=== PATIENT | female | born 1965 | race Caucasian/White ===

== ENCOUNTER 2017-02-24 10:26 | Outpatient (CLI) | payer BC ==
--- NOTE | 2017-02-24 12:58 | ULT ---
ABDOMINAL ULTRASOUND: DATE: 02/24/17. PROVIDED CLINICAL HISTORY: Hypertension and chronic kidney disease. FINDINGS: The visualized abdominal aorta, IVC, and pancreas appear normal as visualized. The liver demonstrat es no evidence for mass. There is prominence of the common duct measuring up to 1 cm. There is mar ked distention of the gallbladder by material of increased echogenicity without definite associated shadowing which may reflect a combination of sludge and nonshadowing stones. There is no wall thick ening or pericholecystic fluid apparent. The kidneys demonstrate no hydronephrosis or mass. The sp lilia is not enlarged and demonstrates no focal abnormality. IMPRESSION: 1. Distended common duct. Please correlate with laboratory values to evaluate for the possibility of biliary obstruction. Correlation with MRCP may be useful if clinically indicated. 2. The gallbladder is distended by material of increased echogenicity likely reflecting a combinati on of gallbladder sludge and nonshadowing stones. POS: SOLO
== END 2017-02-24 10:27 | disposition home or self-care (01) ==
LOC: ULT 10:26
PROVIDERS: ATTEND Internal Medicine Nephrology
DX: N17.9 Acute kidney failure, unspecified (principal); I12.9 Hypertensive chronic kidney disease with stage 1 through stage 4 chronic kidney disease, or unspecified chronic kidney disease; E11.22 Type 2 diabetes mellitus with diabetic chronic kidney disease; N18.4 Chronic kidney disease, stage 4 (severe); J45.909 Unspecified asthma, uncomplicated; E87.5 Hyperkalemia; K86.1 Other chronic pancreatitis; K21.9 Gastro-esophageal reflux disease without esophagitis; M19.90 Unspecified osteoarthritis, unspecified site; Q21.1 Atrial septal defect; R17 Unspecified jaundice; E78.5 Hyperlipidemia, unspecified; R94.5 Abnormal results of liver function studies; M10.9 Gout, unspecified
CPT/HCPCS: 76700; 93306

== ENCOUNTER 2017-02-28 16:12 | Inpatient (IN) | payer BC ==
[2017-02-28 16:35] VITALS: BMI 30.4
[2017-02-28] MEDS ORDERED: Acetaminophen 325 MG TAB PO PRN (17:34)
[2017-02-28] MEDS ORDERED: Zolpidem Tartrate 5 MG TAB PO PRN (17:34)
[2017-02-28] MEDS ORDERED: Ondansetron HCl/PF 4 MG/2 ML Vial IVP PRN (17:34)
[2017-02-28] MEDS ORDERED: SALINE EA NARE PRN (17:39)
[2017-02-28] MEDS ORDERED: Sodium Chloride 0.65% Nasal 44 ML BOT EA NARE PRN (17:39)
[2017-02-28] MEDS ORDERED: Gaviscon Tablet PO PRN (17:39)
[2017-02-28] MEDS ORDERED: Dextrose 50% Abboject 50 ML SYRINGE IVP PRN (17:57)
[2017-02-28] MEDS ORDERED: Dextrose 5% in Water 1,000 ML IV PRN (17:57)
[2017-02-28] MEDS ORDERED: HumaLOG 300 UNITS/3 ML VIAL SC PRN (17:57)
[2017-02-28] MEDS: Sodium Chloride 0.9% 1,000 ML IV SCH (18:20)
[2017-02-28] MEDS ORDERED: Estradiol 0.01% Vaginal Cream 42.5 gm Tube VAG SCH (21:00)
[2017-02-28] MEDS ORDERED: Triazolam [Halcion] 0.25 MG PO SCH (21:45)
[2017-02-28] MEDS: Pregabalin 50 MG CAP PO SCH (22:15)
[2017-02-28] MEDS: Calcium Carbonate 600 MG TAB PO SCH (22:17)
[2017-02-28] MEDS: clonazePAM 0.5 MG TAB PO SCH (22:18)
[2017-02-28] MEDS: tiZANidine HCl 4 MG TAB PO SCH (22:18)
[2017-02-28] MEDS: Montelukast Sodium 10 mg Tablet PO SCH (22:18)
--- NOTE | 2017-03-01 00:03 | HP ---
DATE OF ADMISSION: 02/28/2017 ADMITTING PHYSICIAN: To Pierson M.D. PRIMARY CARE PHYSICIAN: Nathalia Frias M.D. CHIEF COMPLAINT: Abdominal pain, nausea, and vomiting. HISTORY OF PRESENT ILLNESS: The patient is a pleasant 52-year-old with history of diabetes. She pr esents as a direct admission from Dr. Harry' office. The patient was noted to have increased creat inine as well as increased bilirubin and alkaline phosphatase on labs. Abdominal ultrasound was per formed which showed gallstones and normal kidneys bilaterally. Dr. Harry wanted the patient admitt ed for proper treatment of the gallstones as well as assessment for acute kidney injury. Upon my in [facility], the patient denies abdominal pain or nausea at this time. No other complaints at this time . REVIEW OF SYSTEMS: The following complete review of systems was negative, unless otherwise mentione d in the HPI or below: Constitutional: Weight loss or gain, sense of well-being, ability to conduct usual activities, exer cise tolerance. Skin/Breast: Rash, itching, changes in hair growth or loss, nail changes, breast lumps, tenderness, swelling, nipple discharge. Eyes: Vision, double vision, tearing, blind spots, pain. ENT/Mouth: Headaches (location, time of onset, duration, precipitating factors), vertigo, lighthead edness, injury. Vision, double vision, tearing, blind spots, pain, nose bleeding, colds, obstructio n, discharge, dental difficulties, gingival bleeding, dentures, neck stiffness, pain, tenderness, ma sses in thyroid or other areas. Cardiovascular: Precordial pain, substernal distress, palpitations, syncope, dyspnea on exertion, o rthopnea, nocturnal paroxysmal dyspnea, edema, cyanosis, hypertension, heart murmurs, varicosities, phlebitis, claudication. Respiratory: Pain, shortness of breath, wheezing, stridor, cough, hemoptysis, fever or night sweats Gastrointestinal: Poor appetite, dysphagia, indigestion, abdominal pain, heartburn, eructation, vincenzo sea, vomiting, hematemesis, jaundice, constipation, or diarrhea, abnormal stools (mago-colored, albert y, bloody, greasy, foul smelling), flatulence, hemorrhoids, recent changes in bowel habits. Genitourinary: Urgency, frequency, dysuria, nocturia, hematuria, polyuria, oliguria, unusual (or ch tacho in) color of urine, stones, hesitancy, change in size of stream, dribbling, acute retention or incontinence, libido, potency. Musculoskeletal: Pain, swelling, redness or heat of muscles or joints, limitation, of motion, muscu lar weakness, atrophy, cramps. Neurologic/Psychiatric: Convulsions, paralyses, tremor, incoordination, parasthesias, difficulties with memory of speech, sensory or motor disturbances, or muscular coordination (ataxia, tremor), emo tional problems, anxiety, depression, previous psychiatric care, unusual perceptions, hallucinations . Allergy/Immunologic: Skin rash, anemia, bleeding tendency, polydipsia, polyuria, intolerance to hea t or cold. PAST MEDICAL HISTORY: Significant for diabetes, pancreatitis, dyslipidemia, neurological disease, g astrointestinal disease, hypertension, obesity, pulmonary disease, COPD, as well as a history of a h emorrhagic CVA. PSYCHIATRIC HISTORY: Positive for anxiety, depression. PAST SURGICAL HISTORY: Positive for hysterectomy and cervical spinal surgery. SOCIAL HISTORY: Denies alcohol or drug use. Former tobacco user. She is currently using E-cigaret mukul at this time. HOME MEDICATIONS: Include 40 mg b.i.d., Lasix 40 mg b.i.d., Halcion 37.5 mg at bedtime, Wellb utrin-XL 150 mg b.i.d., Klonopin 0.5 mg b.i.d., Zofran 4 mg p.o. p.r.n., Lyrica 100 mg q.i.d., tizan idine 8 mg b.i.d., magnesium oxide 20 mEq everyday, SymlinPen 60 mcg with meals, Aldactone 25 mg nela ry day, Benicar 20 mg every day, Crestor 10 mg every day, Singulair 10 mg every day, Uloric 80 mg ev timoteo day, Belbuca 300 mcg b.i.d., Tresiba 100 units per day, Humalog b.i.d., divalproex ER 250 mg at bedtime, and multivitamins. ALLERGIES: Significant for SHELLFISH and SULFONAMIDES. FAMILY HISTORY: Noncontributory to this case. LABORATORY DATA AND IMAGES: Outpatient labs performed on 02/16/2017 showed glucose of 103, BUN 60, creatinine 2.25. Sodium 138, potassium was 8.2, chloride 101, CO2 of 23, alkaline phosphatase 324, AST 81, ALT 158, bilirubin 5.2. CBC on the showed a white blood cell count of 6.4, hemoglobin 12.5, hematocrit 37.2, and platelets 159. Recent blood work on 02/24/2017 shows phosphorus 5.6, alb umin 3.7, creatinine 3.04, sodium 136, potassium 5.5. Uric acid is 3.1, TSH 2.34, lipase 167, adrián ia 98 with a urine protein of 104. Total bilirubin 6.9, direct bilirubin 6.0, alkaline phosphatase 390, AST 96, ALT 134. ASSESSMENT AND PLAN: 1. Cholelithiasis. 2. Acute kidney injury. 3. Diabetes type 2. 4. Hypertension. PLAN: The patient will be admitted to the medical unit. We have put in a consult for Gastroenterol ogy as well as General Surgery and Nephrology Service. The patient will be administered fluid resus citation for the acute renal injury. We will also place her on an insulin sliding scale regimen. S he will be seen and assessed by the appropriate subspecialties and treated accordingly.
[2017-03-01] MEDS ORDERED: hydrALAZINE 25 MG TAB PO SCH (01:00)
[2017-03-01] MEDS ORDERED: hydrALAZINE 25 MG TAB PO PRN (01:07)
[2017-03-01] MEDS ORDERED: hydrOXYzine 25 MG TAB PO SCH (01:30)
[2017-03-01] MEDS ORDERED: hydrOXYzine 25 MG TAB PO PRN (01:34)
[2017-03-01] MEDS: Sodium Chloride 0.9% 1,000 ML IV SCH ×3 (02:09→20:12)
[2017-03-01 05:24] LABS: ALT (SGPT) 133 U/L (8-55); AST (SGOT) 126 U/L (5-34); Alkaline Phosphatase 450 U/L (40-150); Anion Gap 15 mmol/L (10-20); BUN (Urea Nitrogen) 46 mg/dL (9.8-20.1); Bilirubin, Total 7.5 mg/dL (0.2-1.2); Calc. Creatinine Clearance 45 mL/min (70-130); Calcium 9.5 mg/dL (7.8-10.44); Carbon Dioxide 13 mmol/L (22-29); Chloride 110 mmol/L (98-107); Estimated GFR-MDRD 29; Globulin 4.2 g/dL (2.4-3.5); Protein, Total 7.5 g/dL (6.0-8.3)
[2017-03-01 05:47] LABS: Hematocrit 35.8 % (36.0-47.0); Mean Platelet Volume 11.1 fL (7.4-10.4); Neutrophil 58 % (42-75); Polychromasia SLIGHT = 2-3 cells (100X) (0-2/hpf); Red Blood Cell (RBC) Count 3.84 mill/uL (4.20-5.40); White Blood Cell (WBC) Count 4.2 thou/uL (4.8-10.8)
[2017-03-01] MEDS: IRON PO SCH (09:00)
[2017-03-01] MEDS: Multivit, Therapeutic 1 TAB PO SCH (09:00)
[2017-03-01] MEDS: Magnesium Oxide 250 MG TAB PO SCH (09:00)
[2017-03-01] MEDS: Calcium Carbonate 600 MG TAB PO SCH ×2 (09:00→20:12)
[2017-03-01] MEDS: BUPRENORPHINE HCL 300 MCG PO SCH ×2 (09:00→22:06)
[2017-03-01] MEDS: Ascorbic Acid 500 mg Chewable Tablet PO SCH (09:00)
--- NOTE | 2017-03-01 09:57 | PDOC.PN ---
- Subjective Encounter Start Date: 03/01/17 Encounter Start Time: 09:56 - Objective Resuscitation Status: Resuscitation Status FULL:Full Resuscitation MAR Reviewed: Yes Vital Signs & Weight: Vital Signs (12 hours) Temp Pulse Resp BP Pulse Ox 03/01/17 08:50 98.2 F 60 16 03/01/17 08:00 98.4 F 58 L 20 116/63 95 03/01/17 05:00 98.2 F 53 L 16 100/62 98 03/01/17 01:13 60 03/01/17 00:00 98.2 F 60 16 112/53 L 96 Weight Weight 177 lb 2 oz I&O: 02/28/17 03/01/17 03/02/17 06:59 06:59 06:59 Intake Total 240 Balance 240 Result Diagrams: 03/01/17 03:43 03/01/17 12:51 Additional Labs: Accuchecks 03/01/17 03/01/17 06:37 04:12 POC Glucose 81 117 H Laboratory Tests 04/24/16 03/01/17 17:21 03:43 Total Bilirubin 0.3 7.5 H AST 53 H 126 H ALT 113 H 133 H Alkaline Phosphatase 57 450 H Laboratory Tests 03/01/17 03:43 Amylase 79.0 Lipase 51 Phys Exam - Physical Examination Constitutional: NAD jaundiced HEENT: PERRLA, moist MMs, oral pharynx no lesions icterus Neck: no nodes, no JVD, supple, full ROM Respiratory: no wheezing, no rales, no rhonchi, clear to auscultation bilateral Cardiovascular: RRR, no significant murmur Gastrointestinal: soft, non-tender, no distention, positive bowel sounds Musculoskeletal: no edema, pulses present Neurological: non-focal, normal sensation, moves all 4 limbs Psychiatric: normal affect, A&O x 3 Skin: no rash Dx/Plan (1) MATILDE (acute kidney injury) Code(s): N17.9 - ACUTE KIDNEY FAILURE, UNSPECIFIED Status: Acute (2) Transaminitis Code(s): R74.0 - NONSPEC ELEV OF LEVELS OF TRANSAMNS & LACTIC ACID DEHYDRGNSE Status: Acute (3) Cholelithiases Code(s): K80.20 - CALCULUS OF GALLBLADDER W/O CHOLECYSTITIS W/O OBSTRUCTION Status: Acute Qualifiers: Cholelithiasis location: gallbladder Cholecystitis acuity: acute Biliary obstruction: with biliary obstruction (4) Hyperkalemia Code(s): E87.5 - HYPERKALEMIA Status: Acute (5) DM2 (diabetes mellitus, type 2) Status: Chronic Qualifiers: Diabetes mellitus complication status: with hyperglycemia (6) HTN (hypertension) Code(s): I10 - ESSENTIAL (PRIMARY) HYPERTENSION Status: Chronic (7) h/o hemorrhagic cva Status: Chronic (8) COPD (chronic obstructive pulmonary disease) Status: Chronic (9) h/o Pancreatitis Status: Chronic Comment: 2005.Idiopathic (10) Hyponatremia Code(s): E87.1 - HYPO-OSMOLALITY AND HYPONATREMIA Status: Acute - Plan change to NPo status.cont IVF.amylase/lipase WNL. -: Consult GI as well.GS to follow. may need lap marcellus/ERCP -: Nephrology following for MATILDE,hyperkalemia. -: Potassium improved.recheck in am. Cr improving as well. -: home meds as below. * . Review of Systems - Review of Systems Constitutional: Malaise. negative: Fever, Chills, Sweats, Weakness, Other Respiratory: negative: Cough, Dry, Shortness of Breath, Hemoptysis, SOB with Excertion, Pleuritic Pain, Sputum, Wheezing Cardiovascular: negative: Chest Pain, Palpitations, Orthopnea, Paroxysmal Noc. Dyspnea, Edema, Light Headedness, Other Gastrointestinal: negative: Nausea, Vomiting, Abdominal Pain, Diarrhea, Constipation, Melena, Hematochezia, Other Genitourinary: negative: Dysuria, Frequency, Incontinence, Hematuria, Retention , Other Musculoskeletal: negative: Neck Pain, Shoulder Pain, Arm Pain, Back Pain, Hand Pain, Leg Pain, Foot Pain, Other Neurological: negative: Weakness, Numbness, Incoordination, Change in Speech, Confusion, Seizures, Other - Medications/Allergies Allergies/Adverse Reactions: Allergies Allergy/AdvReac Type Severity Reaction Status Date / Time shellfish derived Allergy Severe SEVERE Verified 02/26/16 14:03 VOMITING, SWELLING Sulfa (Sulfonamide Allergy Intermediate NAUSEA/VOMI Verified 02/26/16 14:03 Antibiotics) TING benzoin Allergy Verified 02/26/16 14:03 Medications: Current Medications Acetaminophen (Tylenol) 650 mg PO Q4H PRN PRN Reason: Headache/Fever or Pain Al Hydroxide/Mg Trisilicate (Gaviscon Chew) 2 tab PO PCHS PRN PRN Reason: Gas Pain Ascorbic Acid (Vitamin C) 1,000 mg PO DAILY [facility] Bupropion HCl (Wellbutrin Xl) 300 mg PO QAM [facility] Bupropion HCl (Wellbutrin Xl) 150 mg PO 1200 [facility] Calcium Carbonate (Caltrate) 1,200 mg PO BID [facility] Last Admin: 02/28/17 22:17 Dose: 1,200 mg Cholecalciferol (Vitamin D3) 2,000 units PO BID [facility] Last Admin: 02/28/17 22:17 Dose: 2,000 units Clonazepam (Klonopin) 0.5 mg PO BID [facility] Last Admin: 02/28/17 22:18 Dose: 0.5 mg Cyanocobalamin (Vitamin B-12) 1,000 mcg SC .2X/QMONTH [facility] Dextrose/Water (Dextrose 50%) 25 gm IVP PRN PRN PRN Reason: HYPOGLYCEMIA PROTOCOL Divalproex Sodium (Depakote Er) 500 mg PO HS [facility] Last Admin: 02/28/17 22:14 Dose: 500 mg Estradiol (Estrace 0.01% Vaginal Cream) 1 gm VAG Q7D [facility] Last Admin: 02/28/17 23:30 Dose: Not Given Furosemide (Lasix) 40 mg PO QAM [facility] Glucagon (Glucagon) 1 mg IM PRN PRN PRN Reason: HYPOGLYCEMIA PROTOCOL Hydroxyzine HCl (Atarax) 25 mg PO Q8H PRN PRN Reason: Itching Sodium Chloride (Normal Saline 0.9%) 1,000 mls @ 100 mls/hr IV .Q10H [facility] Last Admin: 03/01/17 02:09 Dose: 1,000 mls Dextrose/Water (D5w) 1,000 mls @ 0 mls/hr IV INF PRN; As Directed PRN Reason: HYPOGLYCEMIA PROTOCOL Insulin Human Lispro (Humalog) 0 units SC .MILD SLIDING SCALE PRN; Protocol PRN Reason: MILD SLIDING SCALE Magnesium Oxide (Magnesium Oxide) 500 mg PO DAILY [facility] Montelukast Sodium (Singulair) 10 mg PO QPM [facility] Last Admin: 02/28/17 22:18 Dose: 10 mg Multivitamins (Theragran) 1 tab PO DAILY [facility] Olmesartan (Benicar) 20 mg PO QAM [facility] Ondansetron HCl (Zofran) 4 mg IVP Q6H PRN PRN Reason: Nausea/Vomiting Pantoprazole Sodium (Protonix) 40 mg PO BID [facility] Last Admin: 02/28/17 22:18 Dose: 40 mg Buprenorphine Hcl [ Belbuca] 300 Mcg Buccal Film 0 each PO Q12HR [facility] Febuxostat [Uloric] (80 Mg) 0 each PO DAILY [facility] Iron (Ferrous Sulfate 325 Mg) Tablet 1 each PO DAILY [facility] Triazolam [Halcion] (0.25 Mg) 0 each PO HS [facility] Pregabalin (Lyrica) 100 mg PO QID [facility] Last Admin: 02/28/17 22:15 Dose: 100 mg Sodium Chloride ([place] Nasal [place] 0.65%) 0 ml EA NARE PRN PRN PRN Reason: Allergies Tizanidine HCl (Zanaflex) 4 mg PO 0800,2100 [facility] Last Admin: 02/28/17 22:18 Dose: 4 mg Tizanidine HCl (Zanaflex) 8 mg PO 1700 [facility] Zolpidem Tartrate (Ambien) 5 mg PO HSPRN PRN PRN Reason: Insomnia
[2017-03-01] MEDS: Pregabalin 50 MG CAP PO SCH ×4 (11:10→20:32)
[2017-03-01] MEDS: clonazePAM 0.5 MG TAB PO SCH ×2 (11:13→20:33)
[2017-03-01] MEDS: tiZANidine HCl 4 MG TAB PO SCH ×3 (11:13→22:08)
[2017-03-01] MEDS: Febuxostat [Uloric] 80 MG PO SCH ×3 (11:13)
[2017-03-01] MEDS: Furosemide 40 MG TAB PO SCH (11:13)
[2017-03-01] MEDS: Bupropion 150 MG XL TAB PO SCH ×2 (11:14→12:00)
[2017-03-01] MEDS ORDERED: Sodium Chloride 0.9% 1,000 ML IV SCH (14:45)
[2017-03-01] MEDS: Dextrose 5 %-0.45 % NaCl 1,000 ML IV SCH ×2 (15:58→20:08)
[2017-03-01] MEDS ORDERED: Iothalamate Meglumine 60% 50 ML VIAL FS ONE (17:59)
[2017-03-01] MEDS ORDERED: Fentanyl 100 MCG/2 ML VIAL ONE (18:04)
[2017-03-01] MEDS ORDERED: Midazolam HCl 2 mg/2 ml Vial ONE (18:04)
--- NOTE | 2017-03-01 18:18 | CON ---
DATE OF CONSULTATION: 03/01/2017 HISTORY OF PRESENT ILLNESS: Patient is a 52-year-old female who presented to the office o n 02/28/2017 with jaundice. She has been seen by Dr. César Tariq for renal insufficiency and was noted during this to have severely abnormal LFTs. She underwent an abdominal ultrasound, which rai wed dilated CBD, a distended gallbladder with sludge and non-shadowing stones. She denies any abdom inal pain, but has had nausea and vomiting over the last couple of weeks. She denies any weight los s, any melena or hematochezia. Dr. Tariq stopped several medications. Ultrasound showed a distend ed common duct of 1 cm. The gallbladder is distended and with material that has increased echogenic ity. Laboratory from 02/24 showed a total bilirubin of 69; direct of 6.0, alkaline phosphatase 390, AST of 96, ALT of 134, platelet count of 110, ammonia of 98 and lipase of 167. PAST MEDICAL HISTORY: Includes severe pancreatitis 15 years ago with a multiorgan failure and prolo nged ICU stay, diabetes mellitus, hyperlipidemia, hypertension, renal insufficiency, chronic lower b ack pain and cerebrovascular accident. PAST SURGICAL HISTORY: Includes carpal tunnel, hemorrhoidectomy, hysterectomy, ovarian cystectomy, spinal fusion and tonsillectomy. ALLERGIES: Include SULFA and SHELLFISH. MEDICATIONS ON ADMISSION: Wellbutrin 150 mg q. day, Crestor 10 mg p.o. q.a.m., Singulair 10 mg p.o. q.p.m., Depakote 500 mg p.o. at bedtime, insulin, Belbuca 300 mcg q.12 hours, Benicar 20 mg p.o. q. a.m., Klonopin 0.5 mg p.o. b.i.d., Lyrica 100 mg p.o. q.i.d., Halcion 37.5 mg p.o. at bedtime, Lasix 40 mg p.o. q.a.m. and omeprazole 40 mg p.o. b.i.d. SOCIAL HISTORY: She does not smoke or drink. FAMILY HISTORY: Significant for pancreatic cancer in the mother. REVIEW OF SYSTEMS: Constitutional: No fever or chills. No weight loss. Eyes: No blurred vision or double vision. ENT: No sore throat or earaches. Cardiovascular: No chest pain or palpitation. Pulmonary: No shortness of breath, cough or wheezing. Gastrointestinal: See above. Genitourina ry: No hematuria or dysuria. Musculoskeletal: No joint pain or muscle aches. Skin: Positive for a jaundiced skin and excoriations on both ankles. Neurologic: No numbness, no seizure activity. PHYSICAL EXAMINATION: VITAL SIGNS: Shows a temperature of 97.7, pulse 55, respiratory rate 18 and blood pressure 175/80. HEENT: Significant for scleral icterus. NECK: Supple. CHEST: Clear. CARDIOVASCULAR: Regular rate and rhythm. ABDOMEN: Soft and nontender, without organomegaly or masses. She has multiple well-healed surgical scars. EXTREMITIES: Normal. NEUROLOGIC: Nonfocal. LABORATORY DATA: Shows a sodium of 133, potassium 5.2 with a repeat of 4.6, chloride 110, CO2 of 13 , BUN 46, creatinine 1.82, glucose 132, total bilirubin 7.5, AST 126, ALT 133, alkaline phosphatase 450, albumin 3.3 and globulin 42. Amylase and lipase are normal. CBC shows a white blood cell cou nt of 42, hemoglobin 11.5, hematocrit 35.8 and platelet count of 60,000. ASSESSMENT: 1. Obstructive jaundice - patient has a dilated biliary tree and echogenic material in her gallblad kylie, making choledocholithiasis the most likely etiology. Other possibilities would be scarring in the pancreas secondary to previous pancreatitis, although this was 15 years ago, making this less li larry. 2. Renal insufficiency. 3. Pancytopenia. 4. Diabetes mellitus. 5. History of pancreatitis. RECOMMENDATIONS: ERCP - the risk and potential complications of the ERCP were discussed with the dee dee joya and family. These include pancreatitis, bleeding and perforation. With the patient's previou s history of pancreatitis, this would make that complication somewhat higher. Patient understands a nd wishes to proceed.
[2017-03-01] MEDS ORDERED: Propofol 200 MG/20 ML VIAL ONE (18:22)
[2017-03-01] MEDS ORDERED: Glycopyrrolate 0.2 MG/ML 5 ML SYRINGE ONE (18:22)
[2017-03-01] MEDS ORDERED: Lidocaine 2% PF 10 ML AMP (For Epidural Use) ONE (18:22)
[2017-03-01] MEDS: Montelukast Sodium 10 mg Tablet PO SCH (20:32)
--- NOTE | 2017-03-01 20:44 | CON ---
DATE OF CONSULTATION: 03/01/2017 CHIEF COMPLAINT: Jaundice. HISTORY: Ms. Lama is a 52-year-old woman, who has a 3-month history of weight loss and a 2-1/2 wee k history of worsening renal function. For the past week and a half, she has been visibly jaundiced , but she has not had any abdominal pain. She does have a lot of nausea, which she states it is bety rly constant and that is why, she is not eating as much. She thinks she is drinking a normal amount , but her state that he thinks she is not drinking as much as usual. She was eventually sen t to Dr. Nile Harry's office and he decided to admit her due to her increased bilirubin and increased creatinine. She did have an ultrasound performed on the , which showed a distended co mmon bile duct. The gallbladder was also distended and there was some sludge in the gallbladder, bu t no definite shadowing and no wall thickening or pericholecystic fluid. I do not have access to mo monroe of her lab work, but according to the chart, her outpatient lab work on the of this month rai wed a creatinine of 2.25 and a bilirubin of 5.2. On the , her creatinine was 3.04 and her bilir ubin was 6.9. She does have a history of severe pancreatitis in the past and she states that she wa s told she had nerve damage to her abdomen due to her pancreatitis. She had a G-tube and J-tube jacinto kayla at the time of her pancreatitis as well as a tracheostomy and an intra-abdominal drain, so it do es sound like it was a very severe episode. At that time, she was also in renal failure and actuall y had to go on dialysis for a while. She has come off dialysis since then and when she saw Dr. Marya haley, he told her that she was likely just very dehydrated, causing her current renal function decline . She does not have any family history of GI malignancy. ALLERGIES: She reports an allergy to SHELLFISH and SULFA. PAST MEDICAL HISTORY: Diabetes. She has continuous blood glucose monitoring since she is by report of fragile diabetic. She also has a history of hypertension, COPD, hemorrhagic, CVA, and neuropath y. SOCIAL HISTORY: She is a former cigarette smoker and uses E-cigarettes now, does not drink or use d rugs, and was not using alcohol at the time of her episode of pancreatitis. Her says they n ever did figure out why she has the pancreatitis. OUTPATIENT MEDICATIONS: Include Lasix, Halcion, Wellbutrin, Klonopin, Zofran, Lyrica, tizanidine, m agnesium oxide, SymlinPen, Aldactone, Benicar, Crestor, Singulair, Uloric, Belbuca, Tresiba, Humalog , divalproex, and multivitamins. LABS AND IMAGING: As per HPI. PHYSICAL EXAMINATION: VITAL SIGNS: The patient is visibly jaundiced and icteric. HEENT: Unremarkable. NECK: Supple, without lymphadenopathy or thyroid nodules. HEART: Regular in its rate and rhythm, and without murmurs, rubs, or gallops. LUNGS: Clear to auscultation. ABDOMEN: Soft and nondistended. She is nontender to palpation. She has healed surgical incisions. EXTREMITIES: Warm and well perfused without edema. NEUROLOGIC: No focal deficits. PSYCHIATRIC: Alert, oriented, and appropriate, although her answers most questions. ASSESSMENT: Painless jaundice and this is worrisome for a bile duct obstruction and somewhat atypic al for stone disease. She has sludge in possible small non-shadowing stones in her gallbladder on u ltrasound and does have a past history of pancreatitis, so she may have gallstone disease. However, I am hesitant to attribute her symptoms to this. She has had a 30 pound weight loss in the past 3 months and all of this is concerning for occult malignancy. I have spoken with Radiology and they r ecommended against MRCP or CT in the setting of her acute renal failure even though it appears to be improving somewhat with hydration, and it is stated that when her renal function is back to normal in about a week. We could consider MRCP or CT pancreatic protocol. Gastroenterology has seen her a nd is planning to do an ERCP, if there is no evidence of malignancy by ERCP and if the patient's jonathan al failure does not resolve, then endoscopic ultrasound might be the best diagnostic option until th e cause of her jaundice becomes clear. I am hesitant to recommend laparoscopic cholecystectomy, but I will follow along with GI on this case.
[2017-03-01] MEDS ORDERED: Triazolam [Halcion] 0.25 MG PO SCH (21:00)
--- NOTE | 2017-03-02 01:19 | OP ---
PREOPERATIVE DIAGNOSIS: Obstructive jaundice. PROCEDURE: After informed consent was obtained, the patient was placed in the left lateral decubitu s position. Anesthesia was administered per the Anesthesia Department. Side-viewing endoscope was inserted into the esophagus under direct visualization with ease and passed to the second portion of the duodenum with ease. Second portion of the duodenum and duodenal bulb were normal. No mucosal abnormalities were noted. A tapered-tip papillotome was inserted into the ampulla, and the wire was attempted to pass the common bile duct. No cannulation of the common bile duct was achieved. No c ontrast was injected during this ERCP. ASSESSMENT: Unsuccessful endoscopic retrograde cholangiopancreatography. RECOMMENDATIONS: Consider referral to Dr. Perez.
[2017-03-02 05:27] LABS: ALT (SGPT) 146 U/L (8-55); AST (SGOT) 130 U/L (5-34); Alkaline Phosphatase 467 U/L (40-150); Anion Gap 15 mmol/L (10-20); BUN (Urea Nitrogen) 37 mg/dL (9.8-20.1); Bilirubin, Total 8.1 mg/dL (0.2-1.2); Calc. Creatinine Clearance 47 mL/min (70-130); Calcium 9.8 mg/dL (7.8-10.44); Carbon Dioxide 20 mmol/L (22-29); Chloride 106 mmol/L (98-107); Estimated GFR-MDRD 31; Globulin 4.1 g/dL (2.4-3.5); Protein, Total 7.5 g/dL (6.0-8.3)
[2017-03-02 05:45] LABS: Hematocrit 36.5 % (36.0-47.0); Hypochromia SLIGHT = 6-15 cells (100X) (0-5/hpf); Mean Platelet Volume 13.3 fL (7.4-10.4); Neutrophil 56 % (42-75); Red Blood Cell (RBC) Count 4.01 mill/uL (4.20-5.40); Target Cells SLIGHT = 2-5 cells (100X) (0-1/hpf)
[2017-03-02] MEDS: Dextrose 5 %-0.45 % NaCl 1,000 ML IV SCH (08:45)
[2017-03-02] MEDS: Pregabalin 50 MG CAP PO SCH ×3 (08:46→18:57)
[2017-03-02] MEDS: Calcium Carbonate 600 MG TAB PO SCH (08:46)
[2017-03-02] MEDS: clonazePAM 0.5 MG TAB PO SCH (08:46)
[2017-03-02] MEDS: Bupropion 150 MG XL TAB PO SCH ×2 (08:47→12:24)
[2017-03-02] MEDS: tiZANidine HCl 4 MG TAB PO SCH ×2 (08:47→18:57)
[2017-03-02] MEDS: Furosemide 40 MG TAB PO SCH (08:47)
[2017-03-02] MEDS: Febuxostat [Uloric] 80 MG PO SCH ×3 (08:47)
[2017-03-02] MEDS: IRON PO SCH ×2 (08:47→12:25)
[2017-03-02] MEDS: Ascorbic Acid 500 mg Chewable Tablet PO SCH (08:47)
[2017-03-02] MEDS: Multivit, Therapeutic 1 TAB PO SCH (08:48)
[2017-03-02] MEDS: Magnesium Oxide 250 MG TAB PO SCH (08:53)
--- NOTE | 2017-03-02 08:58 | PRG ---
DATE OF SERVICE: 03/02/2017 SUBJECTIVE: Ms. Lama is feeling okay today. She denies any nausea or severe abdominal pain. She states she feels a little sore from her procedure yesterday. Vital signs have been good. LFTs have slightly increased. BUN and creatinine are about the same to slightly better. Urine output is goo d. She is still jaundiced. Her abdomen is benign. ASSESSMENT AND PLAN: Obstructive jaundice which is painless. This is very concerning for a slow gr owing malignancy or other process. Endoscopic retrograde cholangiopancreatography yesterday was uns uccessful at cannulating the duct, although the papilla was easily seen. Again this is very concern ing for obstructive and possibly malignant process. Dr. Hankins has recommended referral to a tertiary care center for another attempted endoscopic retrograde cholangiopancreatography. I would also sug gest that endoscopic ultrasound be considered. Noncontrast imaging of the abdomen could be performe d, although this would be difficult to interpret although she had an obvious calcified stone in the bile duct. However, this is unlikely. I agree with transfer to a higher level of care. There is n o indication for cholecystectomy at this time.
[2017-03-02] MEDS: BUPRENORPHINE HCL 300 MCG PO SCH (09:50)
--- NOTE | 2017-03-02 13:25 | PRG ---
DATE OF SERVICE: 03/02/2017 SUBJECTIVE: The patient is actually feeling better today. She is having no abdominal pain, no naus ea or vomiting. She is hungry. OBJECTIVE: VITAL SIGNS: Temperature 98.3, pulse 53, respiratory rate 20, blood pressure 117/60. CHEST: Clear. CARDIOVASCULAR: Regular rate and rhythm. ABDOMEN: Soft, nontender, without organomegaly or masses. LABORATORY DATA: Shows a CO2 of 20, BUN 37, creatinine 1.73, total bilirubin 81, AST 130, ALT 146, alkaline phosphatase 1467. CBC shows platelets increasing to 117. ASSESSMENT: 1. Obstructive jaundice -- endoscopic retrograde cholangiopancreatography unsuccessful. 2. Diabetes mellitus. 3. Renal insufficiency. 4. History of pancreatitis. RECOMMENDATIONS: Transfer to center of high level of care for repeat ERCP and/or possibly endoscopi c ultrasound.
--- NOTE | 2017-03-02 14:00 | DIS ---
DATE OF ADMISSION: 02/28/2017 DATE OF DISCHARGE: 03/02/2017 PRIMARY CARE PHYSICIAN: Yung Frias M.D. DISCHARGE DISPOSITION: Hospital to hospital transfer for higher level of care. PRIMARY DISCHARGE DIAGNOSES: Obstructive jaundice and acute kidney failure. SECONDARY DISCHARGE DIAGNOSES: Diabetes type 2, hypertension, and chronic obstructive pulmonary dis ease. PRIMARY PROCEDURE/OPERATION: ERCP was started by Dr. Hankins, but it was unsuccessful. RADIOLOGICAL INVESTIGATION: Echocardiography was done on 02/25/2017, which showed normal LV functio n. Abdominal ultrasound was done which showed distended common duct, gallbladder sludge. SIGNIFICANT LABORATORY DATA: WBC 5.0, hemoglobin 12.1, platelet 117. Sodium 136, potassium 4.8, BU N 37, creatinine 1.73, calcium 9.8, and bilirubin 8.1, AST 130, ALT 146, alkaline phosphatase 467, a lbumin 3.4, lipase 51. DISCHARGE MEDICATIONS: Patient is on following medications at home, vitamin C 1000 mg p.o. daily, b uprenorphine 300 mcg p.o. q.12 hourly, calcium carbonate 1200 mg p.o. b.i.d., vitamin D3 2000 units p.o. b.i.d., vitamin B12 1000 mcg p.o. daily, Depakote ER 500 mg p.o. at bedtime, Estrace vaginal cr eam every 7 days, estradiol patch as directed, Uloric 80 mg p.o. daily, Britta-D tablet daily, Lasi x 40 mg p.o. daily, Humalog insulin as per sliding scale, Tresiba 100 units subcutaneous at bedtime, iron 1 tablet p.o. daily, magnesium carbonate one tablet p.o. p.r.n., magnesium oxide 500 mg p.o. d aily, Singulair 10 mg p.o. daily, multivitamin 1 tablet p.o. daily, Benicar 20 mg p.o. daily, Zofra n p.r.n., Lyrica 100 mg q.i.d., triazolam 37.5 mg p.o. at bedtime, Wellbutrin-XL 150 mg p.o. as dire cted, Klonopin 0.5 mg p.o. b.i.d., Zanaflex 4 mg p.o. as directed. CONTRAINDICATIONS: None. CODE STATUS: FULL CODE. INPATIENT CONSULTANTS: Dr. Leyva was consulted while in hospital. Dr. Hankins was consulted while i n hospital. ALLERGIES: SHELLFISH, SULFA DRUGS, and BENZOIN. DISCHARGE PLAN: Post hospital, the patient is discharged to another hospital for higher level of ca re. HOSPITAL COURSE: A 52-year-old female who was admitted by Dr. To Pierson. Please see his H\T\P f or further details. The patient was presented to the emergency room with nausea, vomiting, and abdo shahzad discomfort. She had weight loss. This patient is directly admitted from Dr. Harry' office. This patient had abdominal ultrasound on an outpatient basis which showed biliary dilatation. Dr. Hankins was metal bonding assembler and he was consulted. Dr. Leyva was metal bonding assembler and she was consulted. Dr. Leyva was not thinking that this patient has any gallbladder related symptoms, but she was worried about m ore cholangiocarcinoma. Dr. Hankins tried to do ERCP, but he was not able to finish procedure because he was not able to cannulate and that is why he recommended to transfer her to another hospital. I spoke with the safety equipment tester in another hospital as well as a hospitalist at [facility] and updated about the patient plan and hospital course and they accepted this patient for further care. The patient is seen and examined at bedside today. All review of systems reviewed with her negative. PHYSICAL EXAMINATION: VITAL SIGNS: Currently, temperature 98.3, pulse 50, respiratory rate 20, saturation 97%, and blood pressure 117/60. Weight 177 pounds. GENERAL: The patient is currently alert, awake, no acute distress. HEAD: Normocephalic, atraumatic. EYES: Pupils round, reactive to light. Extraocular muscles intact. ENT: Oropharynx within normal limits. Icterus present. NECK: Supple. LUNGS: Clear. CARDIAC: S1 and S2 regular without any murmur. ABDOMEN: Soft and benign. EXTREMITIES: No edema. NEUROLOGIC: Nonfocal examination. Total time spent on discharge day more than 30 minutes.
[2017-03-02 19:50] VITALS: BP 103/65; TEMP 97.6
[2017-03-09] MEDS ORDERED: Cyanocobalamin 1000 MCG/ML VIAL SC SCH (09:00)
== END 2017-03-02 19:45 | disposition short-term general hospital (02) | DRG 445 ==
LOC: T4-A 16:12
PROVIDERS: ADMIT Internal Medicine Addiction Medicine; ATTEND Internal Medicine Addiction Medicine
PROC: 0FJB8ZZ Inspection of Hepatobiliary Duct, Via Natural or Artificial Opening Endoscopic (ICD-10-PCS; principal; 2017-03-01)
DX: K83.1 Obstruction of bile duct (principal); N17.9 Acute kidney failure, unspecified; D61.818 Other pancytopenia; E87.1 Hypo-osmolality and hyponatremia; I10 Essential (primary) hypertension; Z79.4 Long term (current) use of insulin; J44.9 Chronic obstructive pulmonary disease, unspecified; Z87.19 Personal history of other diseases of the digestive system; F17.290 Nicotine dependence, other tobacco product, uncomplicated; Z86.73 Personal history of transient ischemic attack (TIA), and cerebral infarction without residual deficits; M19.90 Unspecified osteoarthritis, unspecified site; K21.9 Gastro-esophageal reflux disease without esophagitis; Z91.013 Allergy to seafood; E87.5 Hyperkalemia; E11.65 Type 2 diabetes mellitus with hyperglycemia
CPT/HCPCS: 36415; 36416; 74330; 76001; 80053; 82150; 83690; 85025; J1610; J2001; J2250; J2704; J3010; Q9961

== ENCOUNTER 2017-04-19 01:55 | Emergency (ER) | payer MEDICARE, BC ==
[2017-04-19] MEDS ORDERED: Ampicillin 250 MG VIAL ONE (03:07)
[2017-04-19] MEDS ORDERED: metroNIDAZOLE 500 MG/100 ML BAG ONE (03:07)
[2017-04-19] MEDS ORDERED: Dextrose 50% Abboject 50 ML SYRINGE ONE ×2 (03:10→05:06)
[2017-04-19 03:23] LABS: Bilirubin Negative (Negative); Blood, Urine Negative (Negative); Glucose, Urine (Dipstick) Negative (Negative); Ketone, Urine Negative (Negative); Nitrite Negative (Negative); Protein, Urine (Dipstick) Negative (Neg-Trace); Urobilinogen 0.2 mg/dL (0.2-1.0)
[2017-04-19 03:25] LABS: Bacteria/HPF None Seen HPF (None Seen); Squamous Epithelial 21-50 HPF (0-3)
[2017-04-19] MEDS ORDERED: Ampicillin 1 GM, Syringe 2.6 ML in Sterile Water 7.4 ML SLOW IVP SCH (03:30)
[2017-04-19 03:32] LABS: Lactic Acid - Sepsis 1.2 mmol/L (0.5-2.2)
[2017-04-19 03:36] LABS: #Eosinphils 0.4 thou/uL (0.0-0.7); #Lymphocytes 2.2 thou/uL (1.20-3.40); #Monocytes 0.9 thou/uL (0.11-0.59); %Basophils 0.4 % (0.0-1.0); %Eosinophils 4.2 % (0.0-10.0); %Lymphocytes 23.1 % (21.0-51.0); %Monocytes 9.7 % (0.0-10.0); Mean Platelet Volume 10.3 fL (7.4-10.4); Red Blood Cell (RBC) Count 2.84 mill/uL (4.20-5.40); White Blood Cell (WBC) Count 9.6 thou/uL (4.8-10.8)
[2017-04-19] MEDS ORDERED: Fentanyl 100 MCG/2 ML VIAL ONE (03:41)
[2017-04-19 03:46] LABS: Renal Epithelial None Seen HPF (0-3); Transitional Epithelial NONE SEEN HPF (0-3)
[2017-04-19 03:47] LABS: Hyaline Casts/LPF NONE SEEN LPF (0-3 Hyaline)
[2017-04-19 03:50] LABS: ALT (SGPT) 28 U/L (8-55); AST (SGOT) 24 U/L (5-34); Alkaline Phosphatase 119 U/L (40-150); Anion Gap 12 mmol/L (10-20); BUN (Urea Nitrogen) 16 mg/dL (9.8-20.1); Bilirubin, Total 0.4 mg/dL (0.2-1.2); Calc. Creatinine Clearance 0 mL/min (70-130); Calcium 8.9 mg/dL (7.8-10.44); Carbon Dioxide 27 mmol/L (22-29); Chloride 106 mmol/L (98-107); Estimated GFR-MDRD 82; Globulin 2.7 g/dL (2.4-3.5); Protein, Total 5.6 g/dL (6.0-8.3)
[2017-04-19] MEDS ORDERED: Ketorolac Tromethamine 30 MG/ML VIAL ONE (06:03)
--- NOTE | 2017-04-19 07:53 | RAD ---
CHEST ONE VIEW: History: Pain. Comparison: None. FINDINGS: Enlarged cardiac silhouette. The pulmonary vessels and hilum are normal. No mass. No consolidation. N o pneumothorax or osseous abnormality. IMPRESSION: Cardiomegaly. No acute process. POS: [facility]
--- NOTE | 2017-04-19 08:33 | RAD ---
TWO VIEWS FROM A KUB: INDICATION: Abdominal pain. COMPARISON: None. FINDINGS: There is a mild amount of food distending the stomach bubble. There is postsurgical change of a rafy reena bypass and cholecystectomy suspected. The bowel gas pattern is unobstructed. There are small va scular calcifications seen within the lower aspect of the pelvis. No acute osseous abnormality is ev ident. IMPRESSION: 1. Moderate gaseous and debris distention of the suspected gastric pouch. The patient has the appea jordan of a prior gastric bypass. Findings may be related to gastroparesis or possibly gastric outlet obstruction from inflammation or possibly mass. Further evaluation with a CT of the abdomen and pel vis may be helpful. 2. Small bowel gas pattern appears unobstructed. POS: [facility]
== END 2017-04-19 06:15 | disposition home or self-care (01) ==
LOC: ERS 01:55
DX: E86.0 Dehydration (principal); F11.23 Opioid dependence with withdrawal; R11.0 Nausea; R63.0 Anorexia; E11.9 Type 2 diabetes mellitus without complications; E66.9 Obesity, unspecified; F32.9 Major depressive disorder, single episode, unspecified; F41.9 Anxiety disorder, unspecified; F17.210 Nicotine dependence, cigarettes, uncomplicated; I10 Essential (primary) hypertension; J44.9 Chronic obstructive pulmonary disease, unspecified; K21.9 Gastro-esophageal reflux disease without esophagitis; Z86.73 Personal history of transient ischemic attack (TIA), and cerebral infarction without residual deficits
CPT/HCPCS: 36416; 51701; 71010; 74000; 80053; 81003; 81015; 83605; 85025; 87040; 87086; 93005; 96361; 96365; 96367; 96375; 96376; A4216; A4353; J0290; J1885; J1956; J3010

== ENCOUNTER 2017-05-24 00:03 | Inpatient (IN) | payer OTHER, MEDICARE ==
[~2017-05-24 00:03] MED LIST: ISOVUE-370 76%-LOCM 1 ML ONE; Iopamidol 370 76% 50 ML VIAL FS ONE
[2017-05-24 01:07] LABS: #Eosinphils 0.2 thou/uL (0.0-0.7); #Lymphocytes 2.9 thou/uL (1.20-3.40); #Monocytes 0.6 thou/uL (0.11-0.59); #Neutrophils 4.2 thou/uL (1.40-6.50); %Basophils 0.6 % (0.0-1.0); %Eosinophils 2.2 % (0.0-10.0); %Lymphocytes 36.8 % (21.0-51.0); %Monocytes 7.5 % (0.0-10.0); %Neutrophils 52.9 % (42.0-75.0); Hemoglobin 12.8 g/dL (12.0-16.0); Mean Corpuscular HGB CONC 33.1 g/dL (32.0-36.0); Mean Corpuscular Hemoglobin 29.4 pg (27.0-31.0); Mean Corpuscular Volume 88.8 fl (81.0-99.0); Mean Platelet Volume 11.6 fL (7.4-10.4); Platelet Count 222 thou/uL (130-400); RBC Distribution Width 14.3 % (11.5-14.5); Red Blood Cell (RBC) Count 4.35 mill/uL (4.20-5.40); White Blood Cell (WBC) Count 7.9 thou/uL (4.8-10.8)
[2017-05-24 01:35] LABS: ALT (SGPT) 128 U/L (8-55); AST (SGOT) 70 U/L (5-34); Albumin 3.9 g/dL (3.5-5.0); Alkaline Phosphatase 155 U/L (40-150); Anion Gap 17 mmol/L (10-20); BUN (Urea Nitrogen) 26 mg/dL (9.8-20.1); Bilirubin, Total 0.3 mg/dL (0.2-1.2); Calc. Creatinine Clearance 0 mL/min (70-130); Calcium 10.1 mg/dL (7.8-10.44); Carbon Dioxide 22 mmol/L (22-29); Chloride 102 mmol/L (98-107); Estimated GFR-MDRD 47; Globulin 3.7 g/dL (2.4-3.5); Glucose 329 mg/dL (70-105); Potassium 3.9 mmol/L (3.5-5.1); Protein, Total 7.6 g/dL (6.0-8.3); Sodium 137 mmol/L (136-145)
[2017-05-24 02:54] LABS: BHCG - Serum Negative (NEGATIVE); Pregs Control Background? CLEAR/WHITE (CLR/WHITE); Pregs Control Bar Appear? YES (CONTROL BAR)
[2017-05-24 03:02] LABS: Magnesium 1.9 mg/dL (1.6-2.6)
[2017-05-24 03:12] LABS: INR-International Normal Ratio 1.1; PTT 35.1 SEC (22.9-36.1); Prothrombin Time 14.6 SEC (12.0-14.7)
[2017-05-24] MEDS ORDERED: Ondansetron HCl/PF 4 MG/2 ML Vial ONE (05:12)
[2017-05-24] MEDS ORDERED: Morphine 4 MG/ML Carpuject ONE (05:12)
[2017-05-24 05:48] LABS: Bilirubin Small (Negative); Blood, Urine Negative (Negative); Clarity CLOUDY (Clear); Glucose, Urine (Dipstick) Negative (Negative); Leukocyte Negative (Negative); Nitrite Negative (Negative); Protein, Urine (Dipstick) 100 mg/dL (Neg-Trace); Urobilinogen 0.2 mg/dL (0.2-1.0); pH, Urine 5.5 (5.0-9.0)
[2017-05-24 05:51] LABS: Bacteria/HPF None Seen HPF (None Seen); Pathc Cast-AUWi Flag 5.42 (0-2.49); Specific Gravity, Urine 1.046 (1.002-1.036)
[2017-05-24 06:00] LABS: Crystals/HPF 2+ CA OXALATE HPF (Negative); RBC/HPF 0-3 HPF (0-3); Renal Epithelial None Seen HPF (0-3); Transitional Epithelial NONE SEEN HPF (0-3); Trichomonas/HPF None Seen HPF (None Seen)
[2017-05-24] MEDS ORDERED: Loperamide HCl 2 MG CAP PO PRN (06:56)
[2017-05-24] MEDS ORDERED: Sodium Chloride 0.65% Nasal 44 ML BOT EA NARE PRN (06:56)
[2017-05-24] MEDS ORDERED: Dextrose 5% in Water 1,000 ML IV PRN (06:56)
[2017-05-24] MEDS ORDERED: Acetaminophen 325 MG TAB PO PRN (06:56)
[2017-05-24] MEDS ORDERED: Ondansetron ODT 4 MG TAB PO PRN (06:56)
[2017-05-24] MEDS ORDERED: HumaLOG 300 UNITS/3 ML VIAL SC PRN ×2 (06:56)
[2017-05-24] MEDS ORDERED: Mag-Al 1200 mg/1200 mg/30 ML UDCUP PO PRN (06:56)
[2017-05-24] MEDS ORDERED: Senokot 8.6 MG TAB PO PRN (06:56)
[2017-05-24] MEDS ORDERED: Labetalol HCl 100 MG/20 ML VIAL SLOW IVP PRN (06:56)
[2017-05-24] MEDS ORDERED: Loratadine 10 MG TAB PO PRN (06:56)
[2017-05-24] MEDS ORDERED: Eucerin (Mineral Oil/Petrolatum,White) 30 gm Jar TOP PRN (06:56)
[2017-05-24] MEDS ORDERED: Milk Of Magnesia 30 ML UDCUP PO PRN (06:56)
[2017-05-24] MEDS ORDERED: Dextrose 50% Abboject 50 ML SYRINGE SLOW IVP PRN (06:56)
[2017-05-24] MEDS ORDERED: hydrALAZINE 20 MG/ML VIAL SLOW IVP PRN (06:56)
[2017-05-24] MEDS ORDERED: Ondansetron HCl/PF 4 MG/2 ML Vial IVP PRN (06:56)
[2017-05-24] MEDS ORDERED: Artificial Tears 18 DROP/0.9 ML EA EYE PRN (06:56)
[2017-05-24] MEDS ORDERED: Chloraseptic Spray 180 ml Bottle PO PRN (06:56)
[2017-05-24] MEDS ORDERED: Diabetic Tussin 200 MG/10 ML UDCUP PO PRN (06:56)
--- NOTE | 2017-05-24 08:35 | RAD ---
FRONTAL VIEW CHEST: COMPARISON: 04/19/17. CLINICAL HISTORY: Epigastric pain. FINDINGS: No free air beneath the hemidiaphragms. Cardiac silhouette is normal in size. No consolidation or e ffusion. A mild chronic-appearing osseous deformity of the posterolateral mid to lower left ribs not ed. IMPRESSION: No acute process. POS: [facility]
--- NOTE | 2017-05-24 08:47 | CON ---
DATE OF CONSULTATION: 05/24/2017 ATTENDING PHYSICIAN: Dr. Ed Godoy. HISTORY OF PRESENT ILLNESS: The patient is a 52-year-old female with a past medical history of recent pancreatic cancer diagnosis, status post Whipple procedure on 04/12/2017 at [facility] in [place], hypertension, hyperlipidemia, diabetes, CVA in 2005, COPD, who presented to the emergency department last night complaining of abdominal pain and altered mental status. Patient was evaluated with a CT of the abdomen and pelvis as well as CT head. CT head was notable for new left frontal lesion with surrounding vasogenic edema. Therefore, the Neurosurgery Service was consulted. There is no midline shift. I am seeing the patient at the bedside. She is alert and oriented to person, place, and time. She is unable to tell me her birthday. Pupils are equal and reactive. She has good strength to bilateral upper and lower extremities. No focal weakness is appreciated. Family reports that they have recently seen an oncologist at [facility] in [place] and had plans for port placement in the near future and chemotherapy. We discussed the options of transfer closer to her physicians; however, they feel more comfortable staying in the [facility] at this time. PAST MEDICAL HISTORY: Diabetes, hypertension, hyperlipidemia, CVA, COPD, pancreatic cancer. PAST SURGICAL HISTORY: Appendectomy, cholecystectomy, Whipple procedure, hysterectomy, cervical spinal surgery. ALLERGIES: The patient is allergic to PENICILLIN, REGLAN, SHELLFISH, AND SULFA. FAMILY HISTORY: Noncontributory. SOCIAL HISTORY: The patient lives at home. She does not smoke, drink, or use any drugs. REVIEW OF SYSTEMS: Per HPI. PHYSICAL EXAMINATION: VITAL SIGNS: Blood pressure is 146/59, pulse is 61, respiratory rate is 16, temperature is 99.0. Patient is 99% on room air. CONSTITUTIONAL: She is sitting comfortably in the bed, in no acute distress. She is alert. She is oriented to person, place, and time. HEAD: Normocephalic, atraumatic. EYES: PERRLA. Extraocular movements are intact. Sclerae white. ENT: Oral mucosa is pink and intact, moist. Voice is normal. NECK: Supple, nontender to palpation. Free active range of motion, no meningismus or nuchal rigidity. RESPIRATORY: The patient is breathing comfortably. She has symmetric chest expansion. No evidence dyspnea. CARDIOVASCULAR: She has regular rate and rhythm. ABDOMEN: The patient has a large midline incision, which appears to be intact and healing well. She is mildly tender in the epigastric region and right upper quadrant. MUSCULOSKELETAL: She has free active range of motion of all extremities. Peripheral pulses are intact. NEUROLOGIC: She is alert and oriented x4. She has a normal cranial nerve exam. She is unable to tell me her own birthday. No focal motor weakness is appreciated and she has normal [id number]. ASSESSMENT: New left frontal mass with surrounding vasogenic edema in the setting of known pancreatic cancer, which likely indicates metastases. PLAN: This patient will be admitted to the medical service and Oncology will also be involved in the patient's care. We will recommend further evaluation of the patient's new left frontal mass with MRI of the brain with and without contrast. The patient will be monitored closely with frequent neuro checks. I have discussed this plan with Dr. Godoy, who is also in agreement. Please reach out to Neurosurgery Service for additional questions or concerns. ONIEL
[2017-05-24 09:00] VITALS: BMI 27.6
[2017-05-24] MEDS ORDERED: clonazePAM 0.5 MG TAB PO SCH ×2 (09:00→23:45)
[2017-05-24] MEDS ORDERED: Multivit, Therapeutic 1 TAB PO SCH (09:00)
[2017-05-24] MEDS ORDERED: Pantoprazole 40 MG VIAL IVP SCH (09:00)
[2017-05-24] MEDS ORDERED: Ascorbic Acid 500 mg Chewable Tablet PO SCH (09:00)
[2017-05-24] MEDS: Sodium Chloride 0.9% 1,000 ML IV SCH ×2 (09:31→20:33)
--- NOTE | 2017-05-24 09:36 | CT ---
PRELIMINARY REPORT/[facility]/EMERGENCY AFTER HOURS PROCEDURE: Addendum created by Bhargav Gutierres MD on 05/24/2017 5:54 AM Central Time ([place] & [place]) THIS REPORT CONTAINS FINDINGS THAT MAY BE CRITICAL TO PATIENT CARE. The findings were verbally commun icated via telephone conference with Justino Grimm at 5:53 AM HYDRAULIC ASSEMBLER on 05/24/2017. The findings were acknowledged and understood. Initial Report created on 05/24/2017 5:50 AM Central Time ([place] & [place]) EXAM: CT Head Without Intravenous Contrast EXAM DATE/TIME: Exam ordered 05/24/2017 5:35 AM CLINICAL HISTORY: 52 years old, female; Signs and symptoms; Altered mental status/memory loss; Confusion or disorientat ion; Patient HX: Ams/confusion; &o x1. Pt cannot get her own birthday, her 's birthday, or day of week correct. Pt confused and laughing. TECHNIQUE: Axial computed tomography images of the head/brain without intravenous contrast. COMPARISON: No relevant prior studies available. FINDINGS: Brain: There are large area of hypoattenuation involving the LEFT frontal lobe suspicious for underly ing mass lesion. No hemorrhage. No significant white matter disease. Ventricles: Normal. No ventriculomegaly. Bones/joints: Normal. No acute fracture. Soft tissues: Normal. Sinuses: Unremarkable as visualized. No acute sinusitis. Mastoid air cells: Unremarkable as visualized. No mastoid effusion. IMPRESSION: There are large area of hypoattenuation involving the LEFT frontal lobe suspicious for edema from underlying mass lesion. Further evaluation with brain MRI without and with contrast is advised. Thank you for allowing us to participate in the care of your patient. Dictated and Authenticated by: Bhargav Gutierres MD 05/24/2017 5:50 AM Central Time ([place] & [place]) FINAL REPORT CT BRAIN WITHOUT CONTRAST: HISTORY: Altered mental status. FINDINGS/IMPRESSION: The findings of the left frontal lobe are likely sequelae of encephalomalacia with expected location of the frontal horn and the left lateral ventricle. Intraaxial masses are less likely. No hemorrhag e. The findings are unchanged from the 04/24/16 exam. CODE: QA POS: [facility]
--- NOTE | 2017-05-24 09:38 | CT ---
PRELIMINARY REPORT/[facility]/EMERGENCY AFTER HOURS PROCEDURE: EXAM: CT Abdomen and Pelvis With Intravenous Contrast EXAM DATE/TIME: Exam ordered 05/24/2017 5:37 AM CLINICAL HISTORY: 52 years old, female; Pain; Abdominal pain; Localized; Right upper quadrant (ruq); Prior surgery; Pat ient HX: 52 yo f presents to ed C/O post op complication. Pt has h/o pancreatic cancer and had whippl e procedure on 04/12/17. Pt woke up this morning with abdominal pain. also reports chills and decreased appetite. Pt tolerating po. Pt has been slowly relearning how to eat since surgery. ; Addit ional info: *limited oral contrast TECHNIQUE: Axial computed tomography images of the abdomen and pelvis with intravenous contrast. Coronal reformatted images were created and reviewed. COMPARISON: No relevant prior studies available. FINDINGS: Lower thorax: No acute findings. ABDOMEN: Liver: There are no focal liver lesions present. Gallbladder and bile ducts: Patient is post Whipple surgery with pancreatic head resection, gastrojej unostomy and cholecystectomy. Mild stranding in the surgical bed compatible with typical postoperativ e change. No intrahepatic ductal dilation. Pancreas: Linear hyperdensity is noted in the pancreas possibly representing a stent. Spleen: The spleen demonstrates punctate calcifications, consistent with remote granulomatous organis m exposure. Adrenals: The adrenal glands are normal. The adrenal glands are normal. Kidneys and ureters: The kidneys are normal. The kidneys are normal. No hydronephrosis. Stomach and bowel: The colon is normal. Appendix: No findings to suggest acute appendicitis. PELVIS: Bladder: The bladder is decompressed but otherwise normal. Reproductive: Unremarkable as visualized. ABDOMEN and PELVIS: Intraperitoneal space: Normal. No free air. No significant fluid collection. Bones/joints: No acute fracture. No dislocation. Soft tissues: Normal. Vasculature: The vasculature demonstrates diffuse moderate atherosclerotic calcification. No abdomina l aortic aneurysm. Lymph nodes: Normal. No enlarged lymph nodes. IMPRESSION: No acute abdominal pelvic pathology. Post Whipple surgery one month ago. Thank you for allowing us to participate in the care of your patient. Dictated and Authenticated by: Bhargav Gutierres MD 05/24/2017 5:56 AM Central Time ([place] & [place]) FINAL REPORT CT ABDOMEN AND PELVIS: HISTORY: Abdominal pain. Right upper quadrant pain. Recent Whipple procedure. COMPARISON: None. FINDINGS: Mild atelectatic change in the lung bases. Recent postsurgical change from Whipple procedure. Expec elías soft tissue thickening from recent surgery around the superior mesenteric artery and celiac trunk . No dilated loops of large or small bowel. No free intraperitoneal gas. The veins are unremarkable. Calcified granulomas of the spleen. No hydronephrosis. Adrenal glands are unremarkable. The skeleton is unremarkable. IMPRESSION: Expected postoperative findings from Whipple surgery. No acute intraabdominal abnormality. CODE: FANY POS: [facility]
[2017-05-24] MEDS: HYDROcodone/Acetaminophen 5/325 mg Tablet PO PRN ×2 (09:56→18:03)
[2017-05-24] MEDS: Calcium Carbonate 600 MG TAB PO SCH ×2 (09:57→20:33)
--- NOTE | 2017-05-24 10:25 | MRI ---
BRAIN MRI WITH AND WITHOUT CONTRAST: Date: 05-24-17 Comparison: None. History: Altered mental status, left frontal lesion. Technique: Multiplanar, multisequence MR imaging of the brain is obtained with and without contrast. FINDINGS: The diffusion weighted imaging demonstrates no evidence for acute infarction. The axial gradient echo imaging demonstrates no evidence for intracranial hemorrhage. Arterial flow voids at axial level of skull base are unremarkable on the T2 weighted imaging. The imaged paranasal sinuses and mastoid air cells are grossly unremarkable. There are areas of encephalomalacia within the frontal lobe on the left. No abnormal enhancement is i dentified within the brain parenchyma. There are patchy areas of increased T2 and FLAIR signal within the belly of the evaristo, evidence of small vessel disease. In the areas of encephalomalacia within the left frontal lobe, there is adjacent increased T2 and FLA IR signal, evidence of prior insult. IMPRESSION: Findings suggesting two areas of prior infarction within the left frontal region. No acute infarction or intracranial hemorrhage. No abnormal enhancement or mass lesion seen. POS: [facility]
[2017-05-24] MEDS ORDERED: Promethazine 25 MG TAB PO PRN (11:32)
[2017-05-24] MEDS ORDERED: fentaNYL 50 mcg/hour Patch TD SCH (12:00)
[2017-05-24] MEDS ORDERED: Dexamethasone 4 mg/ml Vial SLOW IVP SCH (12:00)
--- NOTE | 2017-05-24 12:30 | HP ---
PRIMARY CARE PHYSICIAN: Dr. Magaly Frias. REASON FOR ADMISSION: Altered mental status, abdominal pain. HISTORY OF PRESENT ILLNESS: A 52-year-old female who has a history of cholangiocarcinoma/pancreatic tumor. She recently underwent Whipple's procedure at [facility]. She was recovering very well. For the last week, the patient was having on and off abdominal pain. Patient does have baseline speech difficulty from previous stroke, but patient's noticed that she was becoming more confused, especially during evening time and she was having difficulty speaking and that is why they brought her to the emergency room. In the emergency room, the patient had CT brain, which showed some frontal lobe mass with edema, but subsequently MRI was done partially which was showing two previous infarct rather than brain mass. The patient had abdomen and pelvis CT scan, which did not show any acute process. Patient's abdominal examination was also benign. The patient's and patient wanted to continue chemotherapy here. This patient has underlying fatty liver and she was told by patient's oncologist that she only can have one chemotherapy, because another chemotherapy she cannot tolerate because of chronic liver disease. She has not started chemotherapy yet, but they wanted to continue further care here because they live locally. In the emergency room, CT finding was concerning for metastatic lesion and that is why neurosurgeon was consulted. Subsequently, we did an MRI brain, but it was partial. She did not tolerate the complete procedure, but partial report is showing infarction rather than mass. Patient does not have any focal motor or sensory symptoms. She denies any headaches. She denies any nausea, vomiting. She denies any diarrhea. She denies any UTI symptoms. Her appetite is now coming back and improving slowly. She has recovered very well from surgery as well. PAST MEDICAL HISTORY: Diabetes type 2 on insulin, hypertension, dyslipidemia, history of hemorrhagic CVA x2, COPD, history of pancreatic cancer/ cholangiocarcinoma. PAST SURGICAL HISTORY: Appendicectomy, cholecystectomy, tracheostomy placement in 2005, hysterectomy, Whipple's procedure for pancreatic cancer, cervical spine surgery, history of ERCP, but it was unsuccessful. PAST PSYCHIATRIC HISTORY: Anxiety, depression, and bipolar disorder. SOCIAL HISTORY: Patient is and lives at home with her . No history of tobacco, alcohol or illicit drug abuse. She is a former smoker, but currently she smokes electric cigarettes. FAMILY HISTORY: No strong family history of premature CAD, CVA or cancer. REVIEW OF SYSTEMS: The following complete review of systems was negative, unless otherwise mentioned in the HPI or below: Constitutional: Weight loss or gain, ability to conduct usual activities. Skin: Rash, itching. Eyes: Double vision, pain. ENT/Mouth: Nose bleeding, neck stiffness, pain, tenderness. Cardiovascular: Palpitations, dyspnea on exertion, orthopnea. Respiratory: Shortness of breath, wheezing, cough, hemoptysis, fever or night sweats. Gastrointestinal: Poor appetite, abdominal pain, heartburn, nausea, vomiting, constipation, or diarrhea. Genitourinary: Urgency, frequency, dysuria, nocturia. Musculoskeletal: Pain, swelling. Neurologic/Psychiatric: Anxiety, depression. Allergy/Immunologic: Skin rash, bleeding tendency. Please see my HPI for pertinent positives and negatives. All other review of systems reviewed and negative except as mentioned in the HPI. EMERGENCY ROOM COURSE: The patient is given morphine 4 mg, Zofran 4 mg, IV fluid. ALLERGIES: BENZOIN, REGLAN, SHELLFISH, SULFA. CURRENT HOME MEDICATIONS: Nexium 40 mg p.o. daily, Lasix 40 mg p.o. daily, Halcion 37.5 mg p.o. at bedtime, Wellbutrin-XL 300 mg in the morning, 150 mg twice daily, Klonopin 0.5 mg twice daily, Zofran 4 mg as needed, Lyrica 100 mg p.o. 4 times daily, Zanaflex 8 mg t.i.d. p.r.n., Benicar 20 mg p.o. daily, Crestor 10 mg p.o. daily, Singulair 10 mg p.o. daily, Uloric 80 mg p.o. daily, vitamin B12 1 mg intramuscularly twice a month, Humalog insulin as per sliding scale, multivitamin 1 tablet p.o. daily, Phenergan on a p.r.n. basis, Fentanyl patch q.72 hours, [place] 10 one tablet q.6 hours p.r.n., Depakote ER 500 mg p.o. at bedtime, vitamin D3 2000 units p.o. twice daily, calcium carbonate 1200 mg p.o. b.i.d., vitamin C 1000 mg p.o. daily. PHYSICAL EXAMINATION: VITAL SIGNS: Currently, blood pressure 152/71, pulse 61, respiratory rate 20, temperature 99, saturation 95% on room air, weight 73.9 kilograms. GENERAL: Patient is currently alert, awake, no obvious acute distress. HEAD: Normocephalic, atraumatic. EYES: Pupils round, reactive to light. Extraocular muscles intact. ENT: Oropharynx within normal limits. Moist mucous membranes. No oral lesions. No pharyngeal erythema or exudate. NECK: Supple, no JVD, no thyromegaly, no carotid bruit, no jugular venous distention. LUNGS: Clear to auscultation without any rhonchi or rales. CARDIAC: S1, S2 regular. No murmur, no gallop, no rub. ABDOMEN: Soft. No distention. Bowel sounds present. No peritoneal signs. No mass. Well healed surgical scar. No suprapubic tenderness. BACK: Unremarkable, no CVA tenderness. EXTREMITIES: Upper extremity, passive movement of all joints are normal. Lower extremity, no edema. Good peripheral pulsation. SKIN: No skin rash. HEMATOLOGICAL: No lymphadenopathy. NEUROLOGIC: Grossly nonfocal examination. She moves all 4 limbs. Plantar bilateral flexor. Reflexes symmetrical. Motor and sensation within normal limits. Her speech is slightly pressurized, but it is normal in baseline per patient's . SIGNIFICANT LABORATORY DATA AND IMAGING: EKG showing normal sinus rhythm without any ischemic changes. CT brain showed large area of hypoattenuation in the left frontal lobe suspicious for edema or underlying mass lesion. Chest x- ray based on my review, no acute cardiopulmonary process. CT of the abdomen and pelvis not showing any acute intra-abdominal process. MRI of the brain done today, which reported as two areas of prior infarction within left frontal region, no acute infarction or intracranial hemorrhage, no mass lesion seen. CBC: WBC 7.9, hemoglobin 12.8, platelet 222. INR 1.1. BMP: Sodium 137, potassium 3.9, chloride 102, carbon dioxide 22, anion gap 17, BUN 26, creatinine 1.19, glucose 329, calcium 10.1, magnesium 1.9. LFT: AST 70, ALT 128, alkaline phosphatase 155, albumin 3.9, lipase 5. test negative. Ammonia 28. Urinalysis unremarkable. ASSESSMENT AND PLAN: 1. Frontal lobe lesion. Initially frontal lobe lesion was suspicious for edema and underlying mass lesion, but MRI brain showing two previous infarction rather than any edema or any mass lesion. I started Decadron initially, but now as there is no clear cut evidence of brain tumor, I will stop Decadron and neurosurgeon is already consulted. I will consult Oncology as well for their opinion. We will do neuro check while in hospital. 2. Altered mental status. The patient is getting confused during evening time , etiology uncertain. This patient already had dementia screen by the patient' s psychiatrist and it was negative. Her ammonia is normal. She does not have any clear cut evidence of infection. Doubt this patient has CT brain finding and MRI finding that contributing to her altered mental status, but at this point per , altered mental status is resolved. 3. Abnormal liver function tests, which is pretty much chronic. We will check hepatitis profile to rule out any hepatitis and will repeat CMP tomorrow. We will avoid hepatotoxins. 4. Diabetes type 2, uncontrolled. I will restart her home insulin and we will continue the insulin as per sliding scale per protocol. Diabetic diet will be given. She is on Tresiba 100 units subcutaneous at bedtime. 5. Dyslipidemia. Continue Crestor 10 mg p.o. at bedtime. 6. Gout. Continue Uloric 80 mg p.o. daily. 7. Anxiety, depression and bipolar disorder. Continue Wellbutrin, clonazepam, Depakote ER and Triazolam as per her home dosage. 8. Hypertension. Continue Benicar as per home dosage. 9. Gastroesophageal reflux disease. Continue Protonix 40 mg IV daily. 10. Abdominal pain, unclear etiology, but CT of the abdomen and pelvis is unremarkable and ruled out acute abdominal process. 11. History of pancreatic tumor/cholangiocarcinoma, status post Whipple's procedure. We will try to obtain medical records from other hospital where she had surgery done. This patient does not want to go for further treatment at [facility] in [place], because she lives locally and she wants to consult Oncology here, so she can get established care. 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 11. Deep venous thrombosis prophylaxis. Sequential compression device boots. We will avoid Lovenox, because of the abnormal CT finding. 12. Gastrointestinal prophylaxis. Patient is on Protonix therapy. 13. Code status: The patient is full code. Patient's is surrogate decision maker. Disposition and plan based on clinical course. We are expecting patient's stay in the hospital more than 2 midnights. Plan of care discussed with the patient in detail. [facility]
[2017-05-24] MEDS ORDERED: Gadobenate Dimeglumine 529 MG/1 ML (20ML VIAL) ONE (15:58)
[2017-05-24] MEDS: Bupropion 150 MG XL TAB PO SCH (16:03)
[2017-05-24] MEDS: clonazePAM 0.5 MG TAB PO SCH (16:04)
[2017-05-24] MEDS ORDERED: [UNRECOGNIZED DRUG - OTHER] SC SCH (17:00)
[2017-05-24] MEDS ORDERED: Montelukast Sodium 10 mg Tablet PO SCH (21:00)
[2017-05-24] MEDS ORDERED: TRIAZOLAM PO SCH (21:00)
[2017-05-24] MEDS ORDERED: INSULIN DEGLUDEC 100 UNIT SC SCH (21:00)
[2017-05-24] MEDS ORDERED: Rosuvastatin 10 MG TAB PO SCH (21:00)
[2017-05-24] MEDS ORDERED: FEBUXOSTAT 80 MG PO SCH (21:00)
[2017-05-24] MEDS: HYDROcodone/Acetaminophen 10/325 mg Tablet PO PRN (23:07)
[2017-05-25] MEDS: HYDROcodone/Acetaminophen 5/325 mg Tablet PO PRN (03:16)
[2017-05-25] MEDS: Bupropion 150 MG XL TAB PO SCH (05:50)
[2017-05-25] MEDS: clonazePAM 0.5 MG TAB PO SCH (05:51)
[2017-05-25 06:04] LABS: #Basophils 0.1 thou/uL (0.0-0.2); #Eosinphils 0.3 thou/uL (0.0-0.7); #Lymphocytes 2.7 thou/uL (1.20-3.40); #Monocytes 0.4 thou/uL (0.11-0.59); #Neutrophils 2.4 thou/uL (1.40-6.50); %Basophils 0.9 % (0.0-1.0); %Eosinophils 5.2 % (0.0-10.0); %Lymphocytes 46.2 % (21.0-51.0); %Monocytes 7.2 % (0.0-10.0); %Neutrophils 40.5 % (42.0-75.0); Mean Corpuscular HGB CONC 33.1 g/dL (32.0-36.0); Mean Corpuscular Hemoglobin 29.7 pg (27.0-31.0); Mean Corpuscular Volume 89.7 fl (81.0-99.0); Mean Platelet Volume 12.5 fL (7.4-10.4); Platelet Count 182 thou/uL (130-400); RBC Distribution Width 14.4 % (11.5-14.5); White Blood Cell (WBC) Count 5.8 thou/uL (4.8-10.8)
[2017-05-25 06:05] LABS: ALT (SGPT) 100 U/L (8-55); AST (SGOT) 51 U/L (5-34); Albumin 3.4 g/dL (3.5-5.0); Alkaline Phosphatase 126 U/L (40-150); Anion Gap 13 mmol/L (10-20); BUN (Urea Nitrogen) 20 mg/dL (9.8-20.1); Bilirubin, Total 0.2 mg/dL (0.2-1.2); Calc. Creatinine Clearance 82 mL/min (70-130); Calcium 9.5 mg/dL (7.8-10.44); Carbon Dioxide 26 mmol/L (22-29); Chloride 106 mmol/L (98-107); Estimated GFR-MDRD 65; Globulin 3.1 g/dL (2.4-3.5); Glucose 243 mg/dL (70-105); Potassium 3.8 mmol/L (3.5-5.1); Protein, Total 6.5 g/dL (6.0-8.3); Sodium 141 mmol/L (136-145)
[2017-05-25 06:14] LABS: HBCM Index 0.12 S/CO (0-0.79); HBSAg Index 0.29 S/CO (0-0.99); Hep A IgM AB Non-Reactive (NonReactive); Hep A IgM S/CO 0.17 S/CO (0-0.79); Hep B Surf Ag Non-Reactive S/CO (NonReactive); Hep C IgG Ab Non-Reactive (NonReactive); Hep C Index 0.12 S/CO (0-0.79); Hepatitis B Core IGM Abs Non-Reactive (NonReactive)
[2017-05-25] MEDS: HYDROcodone/Acetaminophen 10/325 mg Tablet PO PRN (07:29)
[2017-05-25 08:28] VITALS: BP 153/67
[2017-05-25 08:33] VITALS: TEMP 97.8
[2017-05-25] MEDS ORDERED: Magnesium Oxide 250 MG TAB PO SCH (09:00)
--- NOTE | 2017-05-25 10:57 | PDOC.PN ---
- Subjective Encounter Start Date: 05/25/17 Encounter Start Time: 09:30 -: old records requested/rev Patient seen and examined. No new complaints. No overnight events - Objective Resuscitation Status: Resuscitation Status FULL:Full Resuscitation MAR Reviewed: Yes Vital Signs & Weight: Vital Signs (12 hours) Temp Pulse Resp BP BP Pulse Ox 05/25/17 08:00 97.8 F 65 16 05/25/17 07:57 98.3 F 65 16 153/67 H 95 05/25/17 05:51 143/66 H 05/25/17 03:16 97.8 F 65 16 173/73 H 100 05/24/17 23:45 98.1 F 60 16 134/62 99 Weight Weight 160 lb 12.8 oz I&O: 05/24/17 05/25/17 05/26/17 06:59 06:59 06:59 Intake Total 1703 Output Total 1025 Balance 678 Result Diagrams: 05/25/17 04:19 05/25/17 04:19 Additional Labs: Accuchecks 05/24/17 05/24/17 20:35 17:09 POC Glucose 274 H 376 H Phys Exam - Physical Examination Constitutional: NAD HEENT: PERRLA, moist MMs, sclera anicteric Neck: no JVD, supple Respiratory: no wheezing, no rales, no rhonchi Cardiovascular: RRR, no significant murmur, no rub Gastrointestinal: soft, non-tender, no distention, positive bowel sounds Musculoskeletal: no edema, pulses present Neurological: non-focal, normal sensation Lymphatic: no nodes Psychiatric: normal affect, A&O x 3 Skin: no rash, normal turgor Dx/Plan (1) Acute kidney injury Code(s): N17.9 - ACUTE KIDNEY FAILURE, UNSPECIFIED Status: Acute (2) Encephalopathy acute Code(s): G93.40 - ENCEPHALOPATHY, UNSPECIFIED Status: Acute (3) Right frontal lobe lesion Code(s): G93.9 - DISORDER OF BRAIN, UNSPECIFIED Status: Acute (4) Transaminitis Code(s): R74.0 - NONSPEC ELEV OF LEVELS OF TRANSAMNS & LACTIC ACID DEHYDRGNSE Status: Acute (5) Anxiety and depression Code(s): F41.8 - OTHER SPECIFIED ANXIETY DISORDERS Status: Chronic (6) DM2 (diabetes mellitus, type 2) Status: Chronic (7) Dyslipidemia Code(s): E78.5 - HYPERLIPIDEMIA, UNSPECIFIED Status: Chronic (8) GERD (gastroesophageal reflux disease) Code(s): K21.9 - GASTRO-ESOPHAGEAL REFLUX DISEASE WITHOUT ESOPHAGITIS Status: Chronic (9) Gout Code(s): M10.9 - GOUT, UNSPECIFIED Status: Chronic (10) H/O pancreatic cancer Code(s): Z85.07 - PERSONAL HISTORY OF MALIGNANT NEOPLASM OF PANCREAS Status: Chronic (11) H/O: CVA (cerebrovascular accident) Code(s): Z86.73 - PRSNL HX OF TIA (TIA), AND CEREB INFRC W/O RESID DEFICITS Status: Chronic (12) HTN (hypertension) Code(s): I10 - ESSENTIAL (PRIMARY) HYPERTENSION Status: Chronic - Plan cont current plan of care, plan discussed w/ family * pt wants to go home * she wanted to follow up at [place] * medication reviewed as below * symptomatic treatment * see discharge tessie. Review of Systems - Review of Systems ENT: negative: Ear Pain, Ear Discharge, Nose Pain, Nose Discharge, Nose Congestion, Mouth Pain, Mouth Swelling, Throat Pain, Throat Swelling, Other Respiratory: negative: Cough, Dry, Shortness of Breath, Hemoptysis, SOB with Excertion, Pleuritic Pain, Sputum, Wheezing Cardiovascular: negative: chest pain, palpitations, orthopnea, paroxysmal nocturnal dyspnea, edema, light headedness, other Gastrointestinal: negative: Nausea, Vomiting, Abdominal Pain, Diarrhea, Constipation, Melena, Hematochezia, Other Genitourinary: negative: Dysuria, Frequency, Incontinence, Hematuria, Retention , Other Musculoskeletal: negative: Neck Pain, Shoulder Pain, Arm Pain, Back Pain, Hand Pain, Leg Pain, Foot Pain, Other Skin: negative: Rash, Lesions, [place], Bruising, Other - Medications/Allergies Allergies/Adverse Reactions: Allergies Allergy/AdvReac Type Severity Reaction Status Date / Time shellfish derived Allergy Severe SEVERE Verified 02/26/16 14:03 VOMITING, SWELLING Sulfa (Sulfonamide Allergy Intermediate NAUSEA/VOMI Verified 02/26/16 14:03 Antibiotics) TING benzoin Allergy Verified 02/26/16 14:03
--- NOTE | 2017-05-25 11:34 | DIS ---
DATE OF ADMISSION: 05/24/2017 DATE OF DISCHARGE: 05/25/2017 PRIMARY CARE PHYSICIAN: Dr. Yung Frias. DISCHARGE DISPOSITION: Home per patient request. PRIMARY DISCHARGE DIAGNOSES: 1. Acute encephalopathy, improved. 2. Acute kidney injury, improved. 3. Right frontal lobe lesion, likely due to previous infarction. 4. Abnormal liver function tests, improving. SECONDARY DISCHARGE DIAGNOSES: Hypertension, history of cerebrovascular accident, history of pancrea tic cancer and required Whipple's procedure, gout, gastroesophageal reflux disease, dyslipidemia, helen betes type 2, anxiety and depression. PRIMARY PROCEDURE/OPERATION: None. RADIOLOGICAL INVESTIGATION: Abdomen and pelvis CT scan showed no acute abdominal process. Chest x-r ay was normal. CT brain initially showed right frontal lobe lesion with edema and suspected underlyi ng mass. MRI brain showed two areas of prior infarction, but no mass lesions seen. SIGNIFICANT LABORATORY DATA: WBC 5.8, hemoglobin 11.0, platelets 182, INR 1.1. Sodium 141, potassium 3.8, BUN 20, creatinine 0.90, AST 51, ALT 100, alkaline phosphatase 126. Urinalysis unremarkable. Hepatitis profile negative. Urine culture negative. DISCHARGE MEDICATIONS: The patient will continue all her previous medications: Vitamin C 1000 mg p. o. daily, Wellbutrin-XL 150 mg p.o. b.i.d., calcium carbonate 1200 mg p.o. b.i.d., vitamin D3 2000 un its p.o. b.i.d., Klonopin 0.5 mg p.o. b.i.d., vitamin B12 1000 mcg subcu twice a month, Depakote ER 5 00 mg p.o. at bedtime, Nexium 40 mg p.o. b.i.d., Estrace vaginal cream every 7 days, Uloric 80 mg p. o. daily, fentanyl 50 mcg every 72 hours, Britta-D 1 tablet p.o. daily p.r.n., Lasix 40 mg p.o. sharda y, Humalog insulin as per sliding scale, [place] 10 one tablet q.6 hours p.r.n., Tresiba 100 units subc u at bedtime, magnesium oxide 500 mg p.o. daily, Singulair 10 mg p.o. daily, multivitamin 1 tablet p. o. daily, Benicar 20 mg p.o. daily, Zofran 4 mg q.6 hours p.r.n., potassium chloride 20 mEq p.o. natalia ly, SymlinPen 120, 60 mcg subcu daily, Lyrica 100 mg p.o. q.i.d., Phenergan 25 mg q.6 hours p.r.n., C restor 10 mg p.o. at bedtime, [place] nasal spray daily, Zanaflex 8 mg p.o. as directed, triazolam 37.5 mg p.o. at bedtime. CONTRAINDICATIONS: None. CODE STATUS: FULL CODE. INPATIENT CONSULTANTS: Neurosurgery was following while in the hospital. ALLERGIES: SHELLFISH, SULFA, BENZOIN. DISCHARGE PLAN: Post hospital, the patient will follow up with primary care physician. The patient wanted to follow up with [facility] in [place] for her chemotherapy. HOSPITAL COURSE: A 52-year-old female who has a recent diagnosis of pancreatic cancer and she had a Whipple's procedure at [facility]. She was recovering after surgery and she was brought to the emergency room for altered mental status. She had encephalopathy, which we attributed to be due to metabolic etiology. Initially, CT brain suspected a brain mass and edema in the right frontal lob e lesion, but when we did an MRI that did not show any mass lesion, but it was related with her previ ous to infarction. While in hospital, we continued all her previous medication, we gave her IV fluid. Initially, this patient was decided to follow up with our Oncologist, but the next day, patient gallego ed mind and they wanted to follow up with [facility] in [place] for further treatment of pancrea tic cancer and they expressed wish to go home. Neurosurgeon saw this patient, but oncology has not s een, but they do not want to wait for Oncology to see her here in the hospital. The patient is seen and examined at bedside today. Plan of care discussed with the patient's . All test results discussed with them as well in detail. The patient is seen and examined at [facility] today. Please see my progress note from today for further details. The patient is medically stab le for discharge today.
[2017-05-31] MEDS ORDERED: Estradiol 0.01% Vaginal Cream 42.5 gm Tube VAG SCH (21:00)
== END 2017-05-25 09:20 | disposition home or self-care (01) | DRG 71 ==
LOC: ERS 00:03 → ERHOLD 06:16 → 2SW 08:08
PROVIDERS: ADMIT Family Medicine; ATTEND Family Medicine
DX: G93.40 Encephalopathy, unspecified (principal); N17.9 Acute kidney failure, unspecified; C25.9 Malignant neoplasm of pancreas, unspecified; E11.65 Type 2 diabetes mellitus with hyperglycemia; K76.0 Fatty (change of) liver, not elsewhere classified; K21.9 Gastro-esophageal reflux disease without esophagitis; E78.5 Hyperlipidemia, unspecified; I10 Essential (primary) hypertension; M10.9 Gout, unspecified; F41.9 Anxiety disorder, unspecified; F32.9 Major depressive disorder, single episode, unspecified; I69.328 Other speech and language deficits following cerebral infarction; R74.0 Nonspecific elevation of levels of transaminase and lactic acid dehydrogenase [LDH]; Z88.2 Allergy status to sulfonamides; Z88.8 Allergy status to other drugs, medicaments and biological substances; Z91.013 Allergy to seafood; Z79.4 Long term (current) use of insulin; Z79.899 Other long term (current) drug therapy
CPT/HCPCS: 36415; 36416; 70450; 70553; 71045; 74177; 80053; 80074; 81003; 81015; 82140; 83690; 83735; 84703; 85025; 85610; 85730; 87086; 93005; 96361; 96374; 96375; A9579; C9113; G8987-GO-CJ; G8988-GO-CI; J2270; J2405

== ENCOUNTER 2017-08-25 13:10 | Outpatient (CLI) | payer OTHER, MEDICARE | END 2017-08-25 13:11 | disposition home or self-care (01) | LOC: BICMAMMO 13:10 | PROVIDERS: ATTEND Student in an Organized Health Care Education/Training Program | DX: Z12.31 Encounter for screening mammogram for malignant neoplasm of breast (principal); R92.1 Mammographic calcification found on diagnostic imaging of breast; Z85.07 Personal history of malignant neoplasm of pancreas | CPT/HCPCS: 77063; 77067 ==

== ENCOUNTER 2018-08-28 15:54 | Outpatient (CLI) | payer OTHER, MEDICARE ==
--- NOTE | 2018-08-28 16:31 | MMO ---
Bilateral MAMMO Bilat Screen [facility]. CLINICAL HISTORY: Patient is 53 years old and is seen for screening. The patient has no family history of breast cancer. The patient has a history of pancreatic cancer at age 52. VIEWS: The views performed were: bilateral craniocaudal with tomosynthesis and bilateral mediolateral oblique with tomosynthesis. FILMS COMPARED: The present examination has been compared to prior imaging studies performed at [facility] on 03/08/2003, 03/14/2003, 07/04/2008, 10/03/2009, 09/22/2011, 09/22/2012, 02/25/2014, 04/17/2015, 07/14/2016 and 08/25/2017. MAMMOGRAM FINDINGS: There are scattered fibroglandular densities. There are benign appearing calcifications seen in both breasts. There are no suspicious masses, suspicious calcifications, or new areas of architectural distortion. IMPRESSION: THERE IS NO MAMMOGRAPHIC EVIDENCE OF MALIGNANCY. A ROUTINE FOLLOW-UP MAMMOGRAM IN 1 YEAR IS RECOMMENDED. THE RESULTS OF THIS EXAM WERE SENT TO THE PATIENT. ACR BI-RADS Category 2 - Benign finding MAMMOGRAPHY NOTE: 1. A negative mammogram report should not delay a biopsy if a dominant of clinically suspicious mass is present. 2. Approximately 10% to 15% of breast cancers are not detected by mammography. 3. Adenosis and dense breasts may obscure an underlying neoplasm.
== END 2018-08-28 15:55 | disposition home or self-care (01) ==
LOC: BICMAMMO 15:54
PROVIDERS: ATTEND Student in an Organized Health Care Education/Training Program
DX: Z12.31 Encounter for screening mammogram for malignant neoplasm of breast (principal); Z85.07 Personal history of malignant neoplasm of pancreas
CPT/HCPCS: 77063; 77067